=== PATIENT | male | born 1980 | race Caucasian/White ===

== ENCOUNTER 2023-03-16 01:45 | Emergency (ER) | payer OTHER ==
[~2023-03-16] VITALS: Ht 172.7 cm; Wt 88.5 kg
[2023-03-16 01:49] VITALS: BP 135/92; PULSE 64; RESP 16; TEMP 97.1; O2SAT 100
[2023-03-16 02:30] VITALS: BP 131/81; RESP 14; O2SAT 98
[2023-03-16] MEDS ORDERED: LIDOCAINE 5% 1 EA PATCH TP ONE (02:35)
[2023-03-16] MEDS ORDERED: KETOROLAC 30 MG/ML VIAL IM ONE (02:35)
[2023-03-16] MEDS ORDERED: ACETAMINOPHEN EXTRA STRENGTH 500 MG TAB PO ONE (02:35)
[2023-03-16] MEDS ORDERED: LID5T TP (03:44)
[2023-03-16] MEDS ORDERED: METH-1681 PO (03:44)
== END 2023-03-16 03:53 | disposition home or self-care (01) ==
LOC: MED 01:45
DX: S16.1XXA Strain of muscle, fascia and tendon at neck level, initial encounter (principal); I10 Essential (primary) hypertension; R51.9 Headache, unspecified; Z79.899 Other long term (current) drug therapy; X58.XXXA Exposure to other specified factors, initial encounter; Y92.89 Other specified places as the place of occurrence of the external cause; Y93.89 Activity, other specified; Y99.8 Other external cause status
CPT/HCPCS: 96372; 99283; J1885